=== PATIENT | female | born 1980 | race Caucasian/White ===

== ENCOUNTER 2017-11-04 19:35 | Day surgery (SDC) | payer SELFPAY ==
[2017-11-04] VITALS (10 sets, daily range): BP systolic 91–106; BP diastolic 45–85; PULSE 60–78; RESP 14–20; TEMP 36.9–37.3; O2SAT 99–100; BMI 34.2
--- NOTE | 2017-11-04 20:13 | US_ITS ---
STUDY: ULTRASOUND TRANSVAGINAL CLINICAL: Female, 37 years old. Heavy bleeding, TECHNIQUE: Transvaginal COMPARISON: None. FINDINGS: Normal uterine size measuring 12.9 cm in maximal craniocaudal dimension. There are no myometrial masses. Normal endometrial thickness measuring 3.6 cm with vascularity. There are no endometrial masses, and there is no fluid in the endometrial cavity. Normal uterine cervix. Normal right ovary, measuring 2.5 x 2.6 x 1.2 cm. There are multiple follicles without a dominant cyst. Normal left ovary, measuring 3.3 x 1.9 x 2.0 cm. There are multiple follicles without a dominant cyst. There is no free fluid in the pelvis. Polycystic ovary disease: No. US/Transvaginal Non- IMPRESSION: Thickened endometrium measuring 3.6 cm with vascularity. Probable retained products of conception. Electronically Signed: Ousmane Topete DO at 21:06 EDT , Service support ,
[2017-11-04] MEDS: 0.9% Normal Saline 1,000 ML 1000 ML IV (20:25)
[2017-11-04 20:34] LABS: Absolute Lymphocyte Count 1.48 X10^3/ul (0.83-4.51); Absolute Neutrophil Count 8.2 X10^3/uL (2.0-7.7); Basophil# 0.02 X10^3/uL; Basophil% 0.2 % (0-1); Eosinophil# 0.03 X10^3/uL; Eosinophils% 0.3 % (0-5); Hematocrit 30.4 % (37-47); Hemoglobin 10.3 g/dl (12.0-15.0); Lymphocyte # 1.48 X10^3/ul (4.0); Lymphocyte % 14.4 % (19-41); Mean Corp Hgb Conc 33.9 g/gl (32-36); Mean Corpuscular Hgb 27.7 pg (27.0-32.0); Mean Corpuscular Volume 81.7 fL (81-99); Mean Platelet Vol. 10.2 fl (6.2-12.0); Monocyte# 0.57 X10^3/uL; Monocyte% 5.5 % (0-10); Neutrophil # 8.17 X10^3/uL (2.7-7.7); Neutrophil % 79.5 % (47-70); Platelet Count 179 K/mm3 (150-450); RBC Distribution Width CV 13.5 % (11.6-14.6); RBC Distribution Width SD 40.8 fl (35.1-43.9); Red Blood Count 3.72 M/mm3 (4.2-5.4); White Blood Count 10.3 K/mm3 (4.4-11.0)
[2017-11-04 20:35] LABS: POSITIVE COUNT NO; POSITIVE DIFFERENTIAL NO; POSITIVE MORPHOLOGY NO
--- NOTE | 2017-11-04 21:29 | ED.DCSUM_ITS ---
- ER Visit Summary Date of Service: 11/04/17 Chief Complaint: First trimester vaginal bleeding/spontaneous AB History of Present Illness: The patient is a 37 F G 11 P 10 AB 0 female who is approximately 12 weeks gestation sent to ER because of vaginal bleeding, lightheadedness. Onset several hours prior to presentation. She last ate at noon. She has O+ blood. She has no medical problems. Dr. Trejo contacted the ER prior to arrival. She was concerned that she had retained products and reason for significant bleeding. She does complain of mild cramping lower pelvic pain and passing significant clots. Please read written note for complete detail. Physical Examination: Blood pressure is 99/56. She appears pale. Conjunctive is pale. HEENT is otherwise unremarkable. Heart is regular without murmur, gallop or rub. Lungs are clear to auscultation. Abdomen is soft nontender. She is actively bleeding. The remainder of her exam is unremarkable. Please read written note for complete detail Test Results: Hemoglobin is 10.3 with hematocrit of 30.4. May 07, 2016 hemoglobin was 12.2. Ultrasound reveals incomplete AB with retained products of conception Emergency Department Course and Treatment: IV was established and she is hypotensive and she was administered 1 L of normal saline with improvement of pressure to [address] Trejo was contacted since she was hypotensive pale and concerned she would need to go the OR. Dr. Trejo was notified of ultrasound results and she will be in to see patient to perform a D&C. Treatment Plan: IV fluids for resuscitation, type and screen, 2 OR for D&C Disposition: To OR Impression: 1. Hypotension fluid responsive 2. Anemia secondary to vaginal bleeding 3. Spontaneous incomplete AB first trimester This note was generated with [employer] dictation software. It may contain incorrect words, spelling, and punctuation that were not noted in review of the chart prior to signing ED Disposition - Plan for ED Patient: Chief Complaint: Vag Bleeding Referrals: Care Physician,No Primary [Primary Care Provider] -
--- NOTE | 2017-11-04 22:00 | ED.RN ---
REPORT TO TENISHA VAIL IN SURGERY.
--- NOTE | 2017-11-04 22:03 | ED.RN ---
PT SKIN PALE, WARM AND DRY, RESP EVEN AND UNLABORED, PT A&O X 3, NO DISTRESS NOTED. PT TRANSPORTED TO OR.
--- NOTE | 2017-11-04 22:14 | PCM.HP.OB ---
- Problem List (1) Incomplete Status: Acute History Date of Admission: 11/04/17 Gestational age: 12 weeks History of this : 37 yo @ 12 weeks gestation presents with vaginal bleedign and clots and incomplete AB with retained products. Pertinent Past Medical History: negative PSH: cs x 1 with last Social hx: negative Allergies No Known Allergies Allergy (Verified 11/04/17 19:44) Smoking Status: Never smoker Alcohol: None Drug Use: none Number of Fetus(es): 1 - no heart tones Review of Systems Constitutional: Denies: Chills, Fever, Weight Change HEENT: Denies: Head Aches, Sinus Congestion, Sinus Drainage Cardiovascular: Denies: Chest Pain, Palpitations Respiratory: Denies: Cough, Shortness of breath at rest, Sputum production Gastrointestinal: Reports: Abdominal Pain, Nausea. Denies: Vomiting Genitourinary: Denies: Dysuria Gynecological: Reports: Vaginal bleeding Musculoskeletal: Denies: Joint Pain, Joint Tenderness Skin: Denies: Rash, Wounds Neurological: Denies: Numbness, Tingling, Focal weakness Psychiatric: Denies: Anxiety, Depression, Homicidal Ideations, Suicidal Ideations Hematologic/ Lymphatic: Denies: Easy Bruising, Easy Bleeding Physical Exam Vitals: Vital Signs Temp Pulse Resp BP Pulse Ox 99.2 F H 71 20 H 92/61 99 11/04/17 21:34 11/04/17 22:05 11/04/17 22:05 11/04/17 22:05 11/04/17 22:05 General: Alert, Oriented x3, No apparent distress Cardiovascular: Regular rate, Regular Rhythm Lungs: Clear to auscultation Abdomen: Gravid Assessment/Plan Active and Suspected Problems Incomplete (Acute) 37 yo @ 12 weeks with incomplete AB rh positive hypotension responsive to fluids plan suction d and c for retained POC
--- NOTE | 2017-11-04 22:15 | POC_PTH ---
PATIENT: CHERRIE CASTILLO [place] [facility] [place][id number] AGE/SX: 37/F ROOM: RE11/04/[address]: Dr. Thalia Trejo MD : 1980 BED: DIS: 11/04/2017 SPEC #: [id number] RECD: 11/05/17 10:20 STATUS: JD RETomi #: [id number] DANYELLE: 11/04/17 22:[address]: Thalia Trejo DEPT: SURGICAL PATHOLOGY RECD BY: Josh Rodas ENTERED: 11/05/17 13:31 SP TYPE: PROD CONC OTHR DR: No Primary Care Phys Tissues: Product of conception, NOS Procedures: Surgery Specimen Level IV HEADER OPERATION: Dilation and curettage, suction PRE-OP DIAGNOSIS: Missed TISSUE SUBMITTED: Products of conception MICROSCOPIC DIAGNOSIS Products of conception: Decidua, gestational endometrium, immature chorionic villi and a minute piece of tissue (products of conception). SJ:arnoldo 11/06/17 MICROSCOPIC DESCRIPTION Slides are reviewed. GROSS DESCRIPTION Received in fixative is one container labeled with the patient's name and designated products of conception. The specimen consists of multiple pieces of pink-red soft tissue that in aggregate measure 9 x 8 x 3 cm. No tissue is identified. Die Stamping Press Operator tissue is submitted in two cassettes. / DAVID:arnoldo 11/05/17 TC:5 CPT: 32756
[2017-11-04] MEDS: Cefazolin 2 GM in 0.9% Normal Saline 100 ML IV (22:29)
--- NOTE | 2017-11-04 22:56 | PCM.DC.D&C ---
Discharge Diet: No Restrictions Discharge Activity: Return to Normal Activity, May Shower, May Take a Tub Bath Call your doctor if you observe: Fever of 101 or Higher, Shortness of breath, Dizziness Allergies/Adverse Reactions: Allergies No Known Allergies Allergy (Verified 11/04/17 19:44) Medications to take at Discharge NK [NK] 11/04/17 Primary Care Physician: Care Physician,No Primary [Primary Care Provider] - Please Follow Up With: Thalia Trejo MD - [phone] When: 2 weeks
--- NOTE | 2017-11-04 22:58 | PCM.OPRPT ---
Problem List (1) Incomplete Status: Acute Report of Operation Date of Procedure: 11/04/17 Pre-Operative Diagnosis: incomplete ab Post-Operative Diagnosis: same Surgery/Procedure Performed:: suction d and c Type of Anesthesia:: Local MAC Special Medications: ancef Specimen's removed: POC Estimated Blood Loss (mL): 50 cc Fluids Replaced: crystalloid Description of Procedure: Patient was evaluated preoperatively and found to have a missed at 12 weeks of wi no FHTs with no heart tones seen. Patient was counseled and offered medical management versus surgical and patient chose suction D&C. Patient received IV anesthesia was prepped and draped in normal sterile fashion in the dorsal lithotomy position. Cervix was grasped with ring forceps and previously dilated to allow passage of a 10 mm suction curette. Uterus sounded 10 cm. Multiple passes were made with the suction curette to remove products of conception and then sharp curettage was formed to confirm all removal of products of conception. All instruments were removed from the vagina and patient was awoken and taken recovery in stable condition. Grafts/Implants Used: none - Complications none - Admit VTE Documentation VTE Present on Admission: No VTE Mechan Device Prophylaxis: SCD's
== END 2017-11-04 23:36 | disposition home or self-care (01) ==
LOC: ED 20:20 → SDC 21:42 → AC 21:43
PROVIDERS: Emergency Provider Emergency Medicine; Visit Provider Obstetrics & Gynecology
PROC: (CPT 59812; principal; 2017-11-04 22:00)
DX: O03.4 Incomplete spontaneous abortion without complication (principal); I95.9 Hypotension, unspecified; D64.9 Anemia, unspecified
CPT/HCPCS: 59812; 76830; 85025; 86850; 86900; 88305; 99283; J7030; A4216; J2405; J3490

== ENCOUNTER 2018-08-29 01:11 | Inpatient (IN) | payer SELFPAY ==
[2017-11-04 21:34] VITALS: BMI 34.2
[2018-08-29] VITALS (22 sets, daily range): BP systolic 96–129; BP diastolic 32–76; PULSE 63–93; RESP 14–18; TEMP 35.9–37; O2SAT 93–100; BMI 38.8
[2018-08-29] MEDS: Lactated Ringers 1,000 ML 150 ML IV (01:00)
[2018-08-29 01:15] LABS: Absolute Lymphocyte Count 1.66 X10^3/ul (0.83-4.51); Absolute Neutrophil Count 4.7 X10^3/uL (2.0-7.7); Basophil# 0.01 X10^3/uL; Basophil% 0.1 % (0-1); Eosinophil# 0.08 X10^3/uL; Eosinophils% 1.1 % (0-5); Hematocrit 36.2 % (37-47); Hemoglobin 11.8 g/dl (12.0-15.0); Lymphocyte # 1.66 X10^3/ul (4.0); Lymphocyte % 23.6 % (19-41); Mean Corp Hgb Conc 32.6 g/gl (32-36); Mean Corpuscular Hgb 27.8 pg (27.0-32.0); Mean Corpuscular Volume 85.4 fL (81-99); Mean Platelet Vol. 10.6 fl (6.2-12.0); Monocyte# 0.57 X10^3/uL; Monocyte% 8.1 % (0-10); Neutrophil # 4.69 X10^3/uL (2.7-7.7); Neutrophil % 66.8 % (47-70); Platelet Count 152 K/mm3 (150-450); RBC Distribution Width CV 14.2 % (11.6-14.6); RBC Distribution Width SD 43.8 fl (35.1-43.9); Red Blood Count 4.24 M/mm3 (4.2-5.4)
[2018-08-29 01:16] LABS: POSITIVE COUNT NO; POSITIVE DIFFERENTIAL NO; POSITIVE MORPHOLOGY NO
--- NOTE | 2018-08-29 01:17 | PCM.HP.OB ---
- Problem List (1) Placental abruption Status: Acute (2) Previous delivery affecting Status: Acute History Date of Admission: 11/04/17 Final RASHI: 09/12/18 Gestational age: 38 Weeks and 0 Days History of this : This is a 38 year-old, , at 38 weeks gestational age presents with placental abruption. She has been receiving care by a aircraft lay out worker in the community, Eufemia Vernon. She presented with acute vaginal bleedig passing clots, and upon presentation she had a 90 sec heart rate deceleration, with good recovery into the 150-160s with moderate variability. She had an ultrasound over a month ago that showed a low lying placenta but there was no vaginal ultrasound with it. She has had one previous section and all others were vaginal deliveries Medical History: Medical History (Last Updated 08/29/18 @ 01:22 by Thalia Trejo MD) delivery delivered O82 Allergies No Known Allergies Allergy (Verified 11/04/17 19:44) Home Medications: Home Medications NK 11/04/17 Smoking Status: Never smoker Alcohol: None Number of Fetus(es): 1 Heart Tracins moderate variability positive accels one decel 90 seconds cat II tracing toco no contractions History Past Pregnancies: Past Pregnancies 9 previous vaginal deliveries with the last delivery being a secondary to transverse presentation. she had one miscarriage at 3 months prior to this delivery. Expected Delivery Method: ARLETTE Section Review of Systems Constitutional: Denies: Fever, Malaise Eyes: Denies: Blurred vision, Vision Change HEENT: Denies: Head Aches, Visual Changes Cardiovascular: Denies: Chest Pain, Palpitations Respiratory: Denies: Cough, Shortness of Breath, Wheezing Gastrointestinal: Denies: Abdominal Pain, Diarrhea, Nausea, Vomiting Genitourinary: Denies: Dysuria, Hematuria Musculoskeletal: Denies: Joint Pain, Muscle pain Skin: Denies: Lesions, Rash Neurological: Denies: Blurred vision, Focal weakness, Headaches Psychiatric: Denies: Anxiety, Depression Endocrine: Denies: Heat/ Cold Intolerance Hematologic/ Lymphatic: Denies: Easy Bruising, Easy Bleeding Physical Exam General: Alert, Cooperative, No apparent distress HEENT: Atraumatic, Normocephalic. Negative for: Thyromegaly, Lymphadenopathy Cardiovascular: Regular rate Lungs: Normal air movement Abdomen: Soft, Non Tender, Gravid Neurological: Deep Tendon Reflexes 2+/4 and Symmetrical, Neuro grossly intact. Negative for: Clonus ADMINISTRATION PROFESSIONAL: Normal external genitalia. Negative for: Vulvar lesions Estimated gestational size: Appropriate for gestational size Presentation: Cephalic Assessment/Plan All Active Problems Incomplete (Acute) Placental abruption (Acute) Previous delivery affecting (Acute) This is a 38 year-old, , at 38 weeks gestational age presents with placental abruption and previous section, remote from delivery recommend proceeding with RLTCS.
--- NOTE | 2018-08-29 01:22 | HP.PCM_ITS ---
- Problem List (1) Placental abruption Status: Acute (2) Previous delivery affecting Status: Acute History Date of Admission: 11/04/17 Final RASHI: 09/12/18 Gestational age: 38 Weeks and 0 Days History of this : This is a 38 year-old, , at 38 weeks gestational age presents with placental abruption. She has been receiving care by a floor layer tile in the community, Eufemia Vernon. She presented with acute vaginal bleedig passing clots, and upon presentation she had a 90 sec heart rate deceleration, with good recovery into the 150-160s with moderate variability. She had an ultrasound over a month ago that showed a low lying placenta but there was no vaginal ultrasound with it. She has had one previous section and all others were vaginal deliveries Medical History: Medical History (Last Updated 08/29/18 @ 01:22 by Thalia Trejo MD) delivery delivered O82 Allergies No Known Allergies Allergy (Verified 11/04/17 19:44) Home Medications: Home Medications NK 11/04/17 Smoking Status: Never smoker Alcohol: None Number of Fetus(es): 1 Heart Tracins moderate variability positive accels one decel 90 seconds cat II tracing toco no contractions History Past Pregnancies: Past Pregnancies 9 previous vaginal deliveries with the last delivery being a secondary to transverse presentation. she had one miscarriage at 3 months prior to this delivery. Expected Delivery Method: ARLETTE Section Review of Systems Constitutional: Denies: Fever, Malaise Eyes: Denies: Blurred vision, Vision Change HEENT: Denies: Head Aches, Visual Changes Cardiovascular: Denies: Chest Pain, Palpitations Respiratory: Denies: Cough, Shortness of Breath, Wheezing Gastrointestinal: Denies: Abdominal Pain, Diarrhea, Nausea, Vomiting Genitourinary: Denies: Dysuria, Hematuria Musculoskeletal: Denies: Joint Pain, Muscle pain Skin: Denies: Lesions, Rash Neurological: Denies: Blurred vision, Focal weakness, Headaches Psychiatric: Denies: Anxiety, Depression Endocrine: Denies: Heat/ Cold Intolerance Hematologic/ Lymphatic: Denies: Easy Bruising, Easy Bleeding Physical Exam General: Alert, Cooperative, No apparent distress HEENT: Atraumatic, Normocephalic. Negative for: Thyromegaly, Lymphadenopathy Cardiovascular: Regular rate Lungs: Normal air movement Abdomen: Soft, Non Tender, Gravid Neurological: Deep Tendon Reflexes 2+/4 and Symmetrical, Neuro grossly intact. Negative for: Clonus FUNDRAISING MANAGER: Normal external genitalia. Negative for: Vulvar lesions Estimated gestational size: Appropriate for gestational size Presentation: Cephalic Assessment/Plan All Active Problems Incomplete (Acute) Placental abruption (Acute) Previous delivery affecting (Acute) This is a 38 year-old, , at 38 weeks gestational age presents with placental abruption and previous section, remote from delivery recommend proceeding with RLTCS.
--- NOTE | 2018-08-29 01:26 | OP.PCM_ITS ---
Problem List (1) Placental abruption Status: Acute (2) Previous delivery affecting Status: Acute Report of Operation Date of Procedure: 08/29/18 Pre-Operative Diagnosis: abruption, previous Post-Operative Diagnosis: same Surgery/Procedure Performed:: RLTCS Description of Surgical Findings:: small peripheral abuprtion of placenta industrial equipment mechanic: Bárbara Pierce Type of Anesthesia:: Spinal Special Medications: ancef Specimen's removed: placenta, Drains: quiles Estimated Blood Loss (mL): 600 Fluids Replaced: crystalloid Description of Procedure: The patient is a 38-year-old G 12 P 10 presented with acute vaginal bleeding at 38 weeks and heart rate deceleration noted with suspected abruption so the decision was made for a repeat low transverse . Spinal anesthesia was placed without difficulty. Quiles catheter was placed. The patient was placed in the dorsal supine position with leftward tilt. Patient was prepped and draped in the normal sterile fashion. Pfannenstiel skin incision was made with the scalpel and carried through to the underlying layer of fascia with the scalpel. Fascia was nicked in the midline and the incision extended laterally. The rectus bellies were dissected off superiorly and inferiorly with out complication both sharply and bluntly. The peritoneum was entered digitally. The incision was stretched and a low transverse uterine incision was made with the scalpel. The 's head was delivered atraumatically followed by the anterior and posterior shoulders without complication the rest of the infant delivered. The cord was clamped and cut and the was handed off to awaiting nurse. The placenta was delivered spontaneously immediately following and was noted to be intact and have a three-vessel cord. The uterus was exteriorized cleared of all clots and debris, and the incision was closed in a double layer closure using #1 Monocryl. The uterus was returned to the maternal abdomen and gutters were cleared of all clots and debris. The ovaries and fallopian tubes were noted to be within normal limits. The peritoneum was closed with 3-0 Monocryl in a running fashion. Fascia was closed with 0 PDS in a running fashion. Subcutaneous tissue was copiously irrigated and the skin was closed with 3-0 Monocryl in a subcuticular fashion. Mepilex dressing were applied without complication. Patient was taken to recovery in stable condition. Grafts/Implants Used: none - Complications none
[2018-08-29 01:32] LABS: Fibrinogen 482 mg/dl (203-444)
[2018-08-29] MEDS: Sodium Citrate/Citric Acid 30 ML UDC PO (01:55)
[2018-08-29] MEDS: Lactated Ringers 1,000 ML 999 ML IV (02:00)
[2018-08-29] MEDS: DiphenhydrAMINE 25 MG Capsule PO (04:50)
[2018-08-29] MEDS: Lactated Ringers 1,000 ML 100 ML IV ×2 (04:50→11:46)
[2018-08-29] MEDS: Ketorolac 30 MG/ML Syringe IV ×2 (04:50→11:47)
[2018-08-29] MEDS: 0.9% Saline Lock 10 ML Syringe IV ×2 (04:51→11:47)
[2018-08-29] MEDS: Naproxen 250 MG Tablet PO (20:20)
[2018-08-30 00:25] VITALS: BP 102/42; PULSE 74; RESP 16; TEMP 36.8; O2SAT 96
[2018-08-30 04:19] LABS: Hematocrit 32.2 % (37-47); Hemoglobin 10.5 g/dl (12.0-15.0); Mean Corp Hgb Conc 32.6 g/gl (32-36); Mean Corpuscular Hgb 28.2 pg (27.0-32.0); Mean Corpuscular Volume 86.3 fL (81-99); Mean Platelet Vol. 10.3 fl (6.2-12.0); Platelet Count 139 K/mm3 (150-450); RBC Distribution Width CV 14.1 % (11.6-14.6); RBC Distribution Width SD 44.5 fl (35.1-43.9); Red Blood Count 3.73 M/mm3 (4.2-5.4)
[2018-08-30 04:23] LABS: Scan Indicated on CBC? Y/N NO
[2018-08-30] MEDS: Acetaminophen 500 MG Tablet 1000 MG PO ×3 (05:35→21:00)
[2018-08-30 08:50] VITALS: BP 107/57; PULSE 68; RESP 18; TEMP 36.6; O2SAT 96
--- NOTE | 2018-08-30 09:54 | PCM.PN.OB ---
Patient Problems: Active and Suspected Problems (Last Updated 08/29/18 @ 01:22 by Thalia Trejo MD) Placental abruption (Acute) Previous delivery affecting (Acute) Subjective: doing well no complaints pain controlled no CP SOB N V ambulating well tolerating po lochia moderate, going well - Physical Exam General: Alert, Oriented x3 Vital Signs Temp Pulse Resp BP Pulse Ox 97.8 F 68 18 107/57 L 96 08/30/18 08:50 08/30/18 08:50 08/30/18 08:50 08/30/18 08:50 08/30/18 08:50 Oxygen Delivery Method Room Air Weight: 248 lb 3.2 oz Body Mass Index (BMI) 38.8 Intake and Output for Last 24 Hours 08/28/18 08/29/18 08/30/18 23:59 23:59 23:59 Intake Total 2250 / 2250 Output Total 4500 / 4500 1400 / 1400 Balance -2250 / -2250 -1400 / -1400 Laboratory Tests Past 24 Hrs 08/30/18 04:10 WBC 7.0 RBC 3.73 L Hgb 10.5 L Hct 32.2 L MCV 86.3 MCH 28.2 MCHC 32.6 RDW 14.1 RDW Differential 44.5 H Plt Count 139 L MPV 10.3 Medical Necessity - Tobacco Use Smoking Status: Never smoker Assessment/Plan All Active Problems (Last Updated 08/29/18 @ 01:22 by Thalia Trejo MD) Incomplete (Acute) Placental abruption (Acute) Previous delivery affecting (Acute) s/p LTCS PPD # 1 1. routine post care 2. breast feeding- support given 3. rh positive 4. rubella immune
[2018-08-30 13:16] VITALS: BP 111/58; PULSE 77; RESP 16; TEMP 36.7; O2SAT 98
[2018-08-30 22:00] VITALS: BP 118/71; PULSE 74; RESP 18; TEMP 36.7
== END 2018-08-30 23:15 | disposition home or self-care (01) | DRG 786 ==
LOC: WPOUT 01:11
PROVIDERS: Admitting Provider Obstetrics & Gynecology; Referring Provider Obstetrics & Gynecology; Visit Provider Obstetrics & Gynecology
DX: O34.211 Maternal care for low transverse scar from previous cesarean delivery (principal); O45.93 Premature separation of placenta, unspecified, third trimester; N85.8 Other specified noninflammatory disorders of uterus; Z3A.38 38 weeks gestation of pregnancy; Z37.0 Single live birth
CPT/HCPCS: 59025; 59050; 76815; 85025; 85027; 85384; 86850; 86900; 99218; J7120; A4216; G0378; J2405

== ENCOUNTER 2024-04-26 03:33 | Inpatient (IN) | payer SELFPAY ==
[2024-04-26] VITALS (27 sets, daily range): BP systolic 91–142; BP diastolic 52–95; PULSE 61–112; RESP 16–18; TEMP 36.2–36.8; O2SAT 80–99; BMI 38.7
[2024-04-26] MEDS: Lactated Ringers 1,000 ML 50 ML IV (04:00)
[2024-04-26 04:29] LABS: Absolute Lymphocyte Count 1.43 X10^3/uL (0.83-4.51); Absolute Neutrophil Count 10.2 X10^3/uL (2.0-7.7); Basophil# 0.03 X10^3/uL; Basophil% 0.2 % (0-1); Eosinophil# 0.01 X10^3/uL; Eosinophils% 0.1 % (0-5); Hematocrit 33.1 % (37-47); Lymphocyte # 1.43 X10^3/ul (0.83-4.51); Lymphocyte % 11.4 % (19-41); Mean Corp Hgb Conc 33.2 g/dL (32-36); Mean Corpuscular Hgb 27.2 pg (27.0-32.0); Mean Corpuscular Volume 81.7 fL (81-99); Mean Platelet Vol. 11.5 fl (6.2-12.0); Monocyte# 0.79 X10^3/uL; Monocyte% 6.3 % (0-10); NRBC Flagged by Analyzer 0 % (0-5); Neutrophil % 81.4 % (47-70); Platelet Count 175 K/mm3 (150-450); RBC Distribution Width CV 15.5 % (11.6-14.6); Red Blood Count 4.05 M/mm3 (4.2-5.4); White Blood Count 12.5 K/mm3 (4.4-11.0)
[2024-04-26 05:09] LABS: Bacteria 0 SEEN /hpf (None Seen); Mucous, Urine 0 SEEN /hpf (<or=2+)
[2024-04-26 05:15] LABS: Color, Urine Yellow (Yellow); Glucose, Dipstick Normal (Normal); Ketone-Dipstick 15 mg/dl (Negative); Leukocyte Esterase-Dipstick 100 /ul (Negative); Nitrite-Dipstick Negative (Negative); Occult Blood-Urine 150 /ul (Negative); Protein-Dipstick 15 mg/dl (Negative); Specific Gravity, Urine 1.005 (1.002-1.030); Urine Bilirubin Dipstick Negative (Negative); Urine Clarity Clear (Clear); Urine Urobilinogen Normal (Normal)
[2024-04-26 05:31] LABS: Amphetamine Urine NEGATIVE (<1000 ng/mL); Barbiturate Urine NEGATIVE (< 200 ng/mL); Benzodiazepine Urine NEGATIVE (< 200 ng/mL); Cocaine Urine NEGATIVE (< 300 ng/mL); Ecstacy Urine NEGATIVE (< 500 ng/mL); Methadone Urine NEGATIVE (< 300 ng/mL); Opiates Urine NEGATIVE (< 300 ng/mL); PCP Urine NEGATIVE (< 25 ng/mL); THC Urine NEGATIVE (< 50 ng/mL); Vista UDS pH Range 6
[2024-04-26 05:32] LABS: White Blood Cells 10-25 SEEN /hpf (0-5)
[2024-04-26 05:33] LABS: Red Blood Cells-Urine 10-25 SEEN /hpf (0-5); Squamous Epithelial Cells - UA 5-10 SEEN /hpf (5-10)
[2024-04-26] MEDS: Oxytocin 15 Units/NS 250ml 15 UNITS/250 ML IV.SOLN 2 UNITS IV (06:00)
--- NOTE | 2024-04-26 06:43 | HP.PCM.OB_ITS ---
HPI - General General Date of Admission: 04/26/24 HPI Narrative CHERRIE CASTILLO, is a 44 F who presents previous vaginal deliveries with 2 csections, a in between the two and then after the last csection. she statred in labor last night and then water broke and then co ntractions went away so she is here now for delivery. she denies any pain or bleeding. she has had care by francisco javier jeronimo, LMP gives RASHI of 04/29. US was done in [facility] that gives an RASHI of 04/16. placenta fundal/anterior and infant is head down. [facility] Medical History (Updated 04/26/24 @ 06:[address] Thalia Trejo MD) Vaginal after Superficial varicosities delivery delivered Home Medications ?Medication ?Instructions ?Recorded ?Last Taken ?Type vit no.95-ferrous 1 tab PO DAILY see provider 04/26/24 04/25/24 18:00 History fumarate 28 mg-folic acid 800 mcg tablet () Allergy/AdvReac Type Severity Reaction Status Date / Time No Known Allergies Allergy Verified 04/26/24 03:58 Surgical History (Updated 04/26/24 @ 06:[address] Thalia Trejo MD) Previous section Social History Smoking Status: Never smoker History Elective abortions Hx Para 12 Spontaneous abortions Hx # Term Pregnancies Ectopic pregnancies Hx # Pregnancies Multiple births # of living children NST FHR Rate Baby A Baseline: 130 Variability:: Moderate Accelerations:: 15 x 15 Decelerations:: None NST Reactive:: Yes FHR Category:: Category I Uterine Activity:: irregular ROS Constitutional Constitutional: Reports systems reviewed and no addt'l complaints, except as documented Eyes Eyes: Denies change in vision ENT HEENT: Reports systems reviewed and no addt'l complaints, except as documented; Denies headache(s) Cardiovascular Cardiovascular: Reports systems reviewed and no addt'l complaints, except as documented; Denies chest pain or dyspnea Respiratory/Chest Respiratory/Chest: Reports systems reviewed and no addt'l complaints, except as documented Gastrointestinal Gastrointestinal: Reports systems reviewed and no addt'l complaints, except as documented; Denies abdominal pain Genitourinary Genitourinary: Reports systems reviewed and no addt'l complaints, except as documented, contractions Details: present (irregular) and movement Details: present; Denies dysuria or genital lesions Musculoskeletal Musculoskeletal: Reports systems reviewed and no addt'l complaints, except as documented Neurologic Neurologic: Reports systems reviewed and no addt'l complaints, except as documented Endocrine Endocrinology: Reports systems reviewed and no addt'l complaints, except as documented Vital Signs Vital Signs Vital Signs: 04/26/24 04:14 04/26/24 04:14 04/26/24 04:14 Temperature Temperature Source Temporal Pulse Rate 74 Respiratory Rate Blood Pressure 119/73 BP Systolic 119 BP Diastolic 73 Pulse Ox 04/26/24 04:14 04/26/24 04:14 04/26/24 04:14 Temperature 97.3 F L Temperature Source Pulse Rate Respiratory Rate 16 Blood Pressure BP Systolic BP Diastolic Pulse Ox 98 04/26/24 06:01 04/26/24 06:01 04/26/24 06:01 Temperature Temperature Source Pulse Rate 76 Respiratory Rate Blood Pressure 127/74 H BP Systolic 127 BP Diastolic 74 Pulse Ox 99 04/26/24 06:01 04/26/24 06:01 04/26/24 06:01 Temperature 97.6 F L Temperature Source Temporal Pulse Rate Respiratory Rate 16 Blood Pressure BP Systolic BP Diastolic Pulse Ox Weight Weight: 240 lb Body Mass Index (BMI) 38.7 Physical Exam Const alert, oriented x3, no apparent distress and healthy appearing HEENT normocephalic and moist oral mucous membranes Head and Scalp: atraumatic Neck full ROM, no lymphadenopathy, supple and thyroid normal General: trachea midline Lymph Lymphatic: no lymphadenopathy noted Chest inspection of chest normal Resp normal respiratory effort Cardio regular rate GI normal to inspection, nondistended, normoactive bowel sounds, soft to palpation and non-tender Inspection: gravid external exam normal Manual OB Exam: estimated gestational size appropriate, presentation cephalic, dilated, effaced and station Extremity normal to inspection General Extremity: Negative for edema Skin no rashes or lesions noted Neuro no focal motor deficits and deep tendon reflexes 2+ bilaterally Motor Exam: strength 5/5 throughout and clonus absent Psych mental status grossly normal Labs Labs Labs: Blood Type O POSITIVE Antibody Screen NEGATIVE Hct 33.1 % (37-47) L Hgb 11.0 g/dL (12.0-15.0) L Syphilis Total Ab Pending Rubella IgG Antibody Pending Hep Bs Antigen Pending Hepatitis C Antibody Pending HIV 1&2 Antibody Pending Rhogam given: No Assessment & Plan (1) AMA (advanced maternal age) multigravida 35+: (2) Previous delivery affecting : PLAN: Plan plan augmentation of labor, she is 5-6 cm vertex. reassuring FHT. no indication for epidural at this point or if patient desires. will treat for GBS based off of risk factors, rapid offered and sent if patient agrees.
[2024-04-26 07:09] LABS: Rubella IgG Reactive (Nonreactive)
[2024-04-26 07:19] LABS: HIV - WCH Non-Reactive (Nonreactive); Syphilis Antibodies Non-reactive
[2024-04-26 07:29] LABS: Hepatitis B Surface Antigen Non-Reactive (Nonreactive); Hepatitis C Antibody Non-Reactive (Nonreactive)
--- NOTE | 2024-04-26 13:06 | OB.VAGDELI_ITS ---
Vaginal Delivery Maternal Presentation Maternal Presentation: see assessment and plan Vaginal Delivery Information Procedure Performed: Surgeon/Practitioner: Thalia Trejo Date of Procedure: 04/26/24 Type of anesthesia: Epidural Findings Description of procedure: Patient began pushing and delivered the head in the GABE presentation. The head was delivered atraumatically . The anterior and posterior shoulders delivered without complication followed by the rest of the and the was placed on the maternal abdomen. Delayed cord clamping was employed for approximately 60 seconds. Cord was clamped and cut and gentle traction was applied to the cord and the placenta delivered spontaneously immediately following it was noted to be intact with three-vessel cord. The perineum and vagina were inspected and noted to have no laceration. EBL was 300. Patient and infant tolerated delivery well. 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
--- NOTE | 2024-04-26 13:08 | DCINST_ITS ---
Discharge Instructions Diet Discharge Diet: No restrictions Activity Discharge Activity: Return to Normal Activity, May Not Drive (while taking narcotic pain medications.) and May Shower May resume sexual activity in: 4-6 weeks Dressing / Incision Call your doctor if your incision/area has: Continuous Slow Oozing, Sudden Increased Bleeding, Increased Pain/ Swelling, Increased Redness and Foul Smelling Discharge Follow Up Care Please Follow Up With: Thalia Trejo MD When: Call [phone] to make an appointment with your doctor in 6 weeks. If you had elevated blood pressure or 4th degree laceration, you will need to be seen in 2 weeks. Test Results: Test results from this visit will be discussed in further detail at your follow- up appointment, if applicable. Discharge Plan Admission Admit Date/Time: 04/26/24 03:33 Attending Provider: Thalia Trejo Primary Care Provider: Care Physician,Angely Primary Discharge Orders/Prescriptions Prescriptions: No Action PNV [id number]#95-ferrous fumarate-FA [] 28 mg iron- 800 mcg tablet 1 tab PO DAILY Referrals / Follow Up: Care Physician,No Primary [Primary Care Provider] - Disposition Disposition (needs filled in before D/C Order can be placed): Home, Self Care
[2024-04-26] MEDS: Oxytocin 15 Units/NS 250ml 15 UNITS/250 ML IV.SOLN 83 UNITS IV (13:15)
[2024-04-27 01:42] VITALS: BP 113/64; PULSE 78; RESP 16; TEMP 36.8; O2SAT 97
[2024-04-27 05:25] VITALS: BP 104/65; PULSE 73; RESP 18; TEMP 36.2; O2SAT 96
--- NOTE | 2024-04-27 07:02 | NURSING ---
Pt refused to watch educational videos.
[2024-04-27 07:45] VITALS: BP 121/78; PULSE 74; RESP 16; TEMP 36.6
--- NOTE | 2024-04-27 09:05 | PCM.PN.OB ---
Subjective Subjective Patient doing well without complaints. Tolerating PO. Ambulating and voiding without difficulty. feeding well. Denies chest pain, shortness of breath, calf pain/swelling, fevers, chills, lightheadedness. Objective Data Objective Data Vital Signs: Vital Signs Temp Pulse Resp BP Pulse Ox O2 Del Method 97.8 F 74 16 121/78 H 96 Room Air 04/27/24 07:45 04/27/24 07:45 04/27/24 07:45 04/27/24 07:45 04/27/24 05:25 04/27/24 05:25 Oxygen Delivery Method Room Air Weight: 240 lb Body Mass Index (BMI) 38.7 Intake & Output: Intake and Output for Last 24 Hours 04/25/24 04/26/24 04/27/24 23:59 22:59 23:59 Intake Total 1303.00 / 1303.00 Output Total 702 / 702 Balance 601.00 / 601.00 Lab / Micro Data 04/26/24 04:10 Micro: Microbiology 04/26/24 05:00 Urine, Clean Catch Chlamydia/Neisseria (PCR) - Final 04/26/24 06:40 Interface Orders Group B Streptococcus (PCR) - Final ROS Constitutional Constitutional: Reports systems reviewed and no addt'l complaints, except as documented Cardiovascular Cardiovascular: Reports systems reviewed and no addt'l complaints, except as documented Respiratory/Chest Respiratory/Chest: Reports systems reviewed and no addt'l complaints, except as documented Gastrointestinal Gastrointestinal: Reports systems reviewed and no addt'l complaints, except as documented Physical Exam Const alert, oriented x3 and no apparent distress HEENT Head and Scalp: atraumatic Resp normal respiratory effort GI soft to palpation and non-tender Bimanual Exam - Vag & Uterus: uterus non-tender Uterus Palpation: uterus fundus firm (below Umbilicus) Assessment & Plan (1) Vaginal after : COMMENT: SM AOD 40 boy PLAN: Plan s/p PPD # 1 1. routine post delivery care 2. breast feeding- support given 3. rh positive 4. rubella immune
[2024-04-27 12:00] VITALS: PULSE 78; RESP 16; TEMP 36.6
--- NOTE | 2024-04-27 13:29 | VDLE_ITS ---
Reason For Study: Right leg pain RIGHT LEFT CFV is compressible, spontaneous, phasic, CFV is compressible, spontaneous, phasic, competent and demonstrates normal competent, and demonstrates normal augmentation. augmentation. FV is compressible, spontaneous, phasic, competent and demonstrates normal augmentation. POP V is compressible, spontaneous, phasic, competent and demonstrates normal augmentation. T/P Trunk is compressible. PTV is compressible. RT PerV is compressible. Acute superficial vein thrombosis is noted in the right GSV prox thigh. It is NONCOMPRESSIBLE and dilated. Thrombus is approximately 8 cm from junction with CFV. Thrombus filled varicose veins are noted throughout the prox thigh to knee. It is NONCOMPRESSIBLE and dilated. Procedure This is a venous duplex using B-mode, color flow and spectral Doppler. Exam performed portable in patient room. A preliminary report was called and/or faxed to Judith STEVEN. VL/Venous Duplex US, Unilateral Interpretation Summary Deep veins of the right lower extremity are patent and compressible segmentally . There is no evidence of right lower extremity deep vein thrombosis. Valvular competence sherrie ears intact within the proximal deep venous system on the right . Acute superficial thrombophlebit is is noted in the right great saphenous vein in the thigh, as well as in varicosities from the ri ght proximal thigh to the knee. The thrombus in the right great saphenous vein is approximately 8 hunter timeters from the sapheno-femoral junction. The left common femoral vein is patent and compressib le . Ordering Physician: Thalia Trejo Performed By: Eufemia Wilson RVT
--- NOTE | 2024-04-27 13:36 | PCM.PN.BLA ---
Progress Note right inner thigh firm lump with pain recommend immediate imaging
[2024-04-27] MEDS: Naproxen 500 MG Tablet PO (14:13)
--- NOTE | 2024-04-27 15:23 | NURSING ---
[id number] Report from [employer] regarding rt leg doppler study called to Dr. Roy. She states she will call pt with recommendations from radiologist.
== END 2024-04-27 15:20 | disposition home or self-care (01) | DRG 806 ==
PROVIDERS: Obstetrics & Gynecology; Admitting Provider Obstetrics & Gynecology; Referring Provider Obstetrics & Gynecology; Visit Provider Obstetrics & Gynecology
DX: O34.219 Maternal care for unspecified type scar from previous cesarean delivery (principal); Z37.0 Single live birth; O87.0 Superficial thrombophlebitis in the puerperium; I80.01 Phlebitis and thrombophlebitis of superficial vessels of right lower extremity; O99.824 Streptococcus B carrier state complicating childbirth; Z3A.39 39 weeks gestation of pregnancy
CPT/HCPCS: 59025; 59050; 76815; 80307; 81001; 85025; 86703; 86762; 86780; 86803; 86850; 86900; 86901; 87340; 87491; 87591; 87653; 93971; 99221; G0378